=== PATIENT | female | born 1965 | race Two or more races ===

== ENCOUNTER 2024-03-12 02:36 | Emergency (ER) | payer SELFPAY ==
[~2024-03-12] VITALS: Ht 152.4 cm; Wt 61.4 kg
[2024-03-12 02:40] VITALS: BP 180/110; PULSE 74; RESP 18; TEMP 97.6
[2024-03-12] MEDS ORDERED: AMLO2.5T96 PO (02:42)
== END 2024-03-12 02:50 | disposition left against medical advice (07) ==
LOC: EMS 02:36
DX: Z53.21 Procedure and treatment not carried out due to patient leaving prior to being seen by health care provider (principal)